=== PATIENT | male | born 2000 | race African-American/Black ===

== ENCOUNTER 2018-06-19 18:50 | Emergency (ER) | payer OTHER ==
[2018-06-19] MEDS: IBUPROFEN 100 MG/5 ML ORAL.SUSP. PO (19:24)
[2018-06-19] MEDS: ACETAMINOPHEN 650 MG/20.3 ML SOLUTION. PO (19:24)
[2018-06-19] MEDS: LIDO:MAALOX 1:1 20 ML SINGLE DOSE. SWSW (19:24)
[2018-06-19] MEDS: IV NORMAL SALINE 1000ML BAG 1,000 ML IV (19:24)
[2018-06-19] MEDS: DEXAMETHASONE SOD PHOS 20 MG/5 ML VIAL. IV (19:25)
[2018-06-19] MEDS: ONDANSETRON PF 4 MG/2 ML VIAL. IV (19:25)
[2018-06-19] MEDS: KETOROLAC 30 MG/ML INJ. IV (19:25)
[2018-06-19] MEDS: MORPHINE SULFATE 10 MG/ML VIAL. IV (19:26)
[2018-06-19 19:27] LABS: ADD MAN DIFF? NO
[2018-06-19 19:32] LABS: BASO # 0.1 x10^3/uL (0.0-0.2); BASO % 1 % (0-3); EOS # 0.1 x10^3/uL (0.0-0.7); EOS % 1 % (0-3); HEMATOCRIT 45.5 % (39.0-53.0); HEMOGLOBIN 15.9 g/dL (13.0-17.5); LYMPH # 1.4 x10^3/uL (1.0-4.8); LYMPH % 11 % (24-48); MEAN CORPUSCULAR HEMOGLOBIN 30 pg (25-35); MEAN CORPUSCULAR HGB CONC 35 g/dL (31-37); MEAN CORPUSCULAR VOLUME 87 fL (79-100); MONO # 1.2 x10^3/uL (0.0-1.1); MONO % 9 % (0-9); NEUT # 10.4 x10^3uL (1.8-7.7); NEUT % 79 % (31-73); PLATELET COUNT 203 x10^3/uL (140-400); RED BLOOD COUNT 5.21 x10^6/uL (4.30-5.70); RED CELL DISTRIBUTION WIDTH 13.5 % (11.5-14.5); WHITE BLOOD COUNT 13.2 x10^3/uL (4.0-11.0)
[2018-06-19 19:45] LABS: ANION GAP 9 (6-14); BLOOD UREA NITROGEN 17 mg/dL (8-26); CALCIUM 9.8 mg/dL (8.5-10.1); CARBON DIOXIDE 27 mmol/L (21-32); CHLORIDE 104 mmol/L (98-107); CREATININE 1.2 mg/dL (0.7-1.3); GFR 93.4; GLUCOSE 85 mg/dL (70-99); POTASSIUM 3.7 mmol/L (3.5-5.1); SODIUM 140 mmol/L (136-145)
[2018-06-19] MEDS ORDERED: CONTRAST GIVEN. MC (20:00)
[2018-06-19] MEDS ORDERED: IOHEXOL 300 MG/ML 100ML VIAL. IV (20:00)
[2018-06-19] MEDS: IOHEXOL 300 MG/ML 100ML VIAL. IV (20:25)
[2018-06-19] MEDS: PIPERACILLIN/TAZOBACTAM 3.375 GM in IV NORMAL SALINE 50ML 50 ML IV (21:00)
[2018-06-19] MEDS: VANCOMYCIN 2 GM in IV NORMAL SALINE 500ML BAG 500 ML IV (21:00)
[2018-06-19] MEDS ORDERED: VANCOMYCIN PER PHARMACY MC (21:00)
[2018-06-20 07:01] LABS: NEGATIVE OBC STREP NEG; POSITIVE OBC STREP POS
== END 2018-06-19 21:35 | disposition short-term general hospital (02) ==
LOC: ER 21:35
DX: J36 Peritonsillar abscess (principal); J45.909 Unspecified asthma, uncomplicated; Z91.013 Allergy to seafood
CPT/HCPCS: 36415; 70491; 80048; 85025; 87070; 87880; 96365; 96375; 99285-25; J1100; J1885; J2270; J2405; J2543; J7030; Q9967

== ENCOUNTER 2019-07-08 00:52 | Emergency (ER) | payer SELFPAY ==
[2018-06-19 21:32] VITALS: BP 134/77
[~2019-07-08] VITALS: Ht 185.4 cm; Wt 81.2 kg
[2019-07-08] MEDS ORDERED: HYDR-2163 PO (01:17)
[2019-07-08] MEDS ORDERED: SULF1TAB24 PO (01:17)
--- NOTE | 2019-07-08 01:29 | PHYS DOC ---
Past Medical History Past Medical History: Asthma Past Surgical History: No Surgical History Alcohol Use: None Drug Use: None Adult General Chief Complaint Chief Complaint: INSECT BITE HPI HPI Patient is a 19 year old -[place] male presents with left anterior neck swelling redness and drainage after being bit by a spider 3 days ago. Patient reports gradual swelling redness with increased pain and tenderness to the area minimal fluctuance and drainage. No fever chills, nausea vomiting or sweats. No history of MRSA. No other acute symptoms or complaints [] Review of Systems Review of Systems Review symptoms as per history of present illness. All other review symptoms are negative. All other systems were reviewed and found to be within normal limits, except as documented in this note. Current Medications Current Medications Current Medications Medications (Trade) Dose Ordered Sig/Rashaun Start Time Stop Time Status Last Admin Dose Admin Acetaminophen/ Hydrocodone Bitart (Lortab 5/325) 1 tab 1X ONCE 07/08/19 01:30 07/08/19 01:31 07/08/19 01:18 1 TAB Trimethoprim/ Sulfamethoxazole (Bactrim Ds) 1 tab 1X ONCE 07/08/19 01:30 07/08/19 01:31 07/08/19 01:18 1 TAB Allergies Allergies Allergies Coded Allergies Type Severity Reaction Last Updated Verified shellfish derived Allergy Intermediate Itching 06/19/18 Yes Physical Exam Physical Exam Constitutional: Well developed, well nourished, no acute distress, non-toxic appearance. [] HENT: Normocephalic, atraumatic, bilateral external ears normal, oropharynx moist, no oral exudates, nose normal. [] Eyes: PERRLA, EOMI, conjunctiva normal, no discharge. [] Neck: Normal range of motion, 2 x 3 cm region of induration just lateral to the left of jugular notch. Moderate erythema without fluctuance noted.[] Cardiovascular:Heart rate regular rhythm, no murmur [] Lungs & Thorax: Bilateral breath sounds clear to auscultation []. [] Psychologic: Affect normal, judgement normal, mood normal. [] Current Patient Data Vital Signs Vital Signs Date Time Temp Pulse Resp B/P (MAP) Pulse Ox O2 Delivery O2 Flow Rate FiO2 07/08/19 00:52 98.9 60 16 147/73 (97) 99 Room Air 98.9 EKG EKG [] Radiology/Procedures Radiology/Procedures [Betadine used to swab the area of infection. [place] was injected with 1% lidocaine w/o epi. A stab incision was made over the apex of soft tissue infection without drainable fluid collection. Wound was bandaged. ] Course & Med Decision Making Course & Med Decision Making Pertinent Labs and Imaging studies reviewed. (See chart for details) [Anterior neck cellulitis. Stab incision without drainage. Antibiotics prescribed. Recommendation is for continued antibiotics close PCP follow-up and watchful waiting. Return precautions reviewed. Patient verbalizes understanding agreement discharge instructions prior to departure.] Dragon Disclaimer Dragon Disclaimer This electronic medical record was generated, in whole or in part, using a voice recognition dictation system. Departure Departure Impression: Primary Impression: Neck abscess Disposition: HOME, SELF-CARE Condition: GOOD Patient Instructions: Abscess, [id number] Additional Instructions: Apply a warm compresses to abscess for 20-30 minutes every 3-4 hours and take ibuprofen for pain and newly prescribed medications as directed. Follow-up with local PCP in 2-3 days for reevaluation. Return immediately if symptoms are worse. Scripts Hydrocodone Bit/Acetaminophen (HYDROCODONE-APAP 5-300) 1 Each Tablet 1 TAB PO PRN Q6HRS PRN for PAIN, #10 TAB 0 Refills Prov: BERNARDINO ISAAC DO 07/08/19 Sulfamethoxazole/Trimethoprim (BACTRIM DS TABLET) 1 Each Tablet 1 TAB PO BID, #20 TAB Prov: BERNARDINO ISAAC DO 07/08/19 BERNARDINO ISAAC DO Jul 08, 2019 01:29
[2019-07-08] MEDS ORDERED: SMZ/TMP 800/160MG TABLET. PO ONE (01:30)
[2019-07-08] MEDS ORDERED: HYDROcodone/APAP 5/325MG 1 TAB TABLET PO ONE (01:30)
== END 2019-07-08 01:24 | disposition home or self-care (01) ==
LOC: ER 00:52
DX: L02.11 Cutaneous abscess of neck (principal); J45.909 Unspecified asthma, uncomplicated; Z91.013 Allergy to seafood
CPT/HCPCS: 10060; 99283